=== PATIENT | male | born 1985 | race Caucasian/White ===

== ENCOUNTER 2017-05-20 14:22 | Emergency (ER) | payer OTHER ==
[2017-05-20 14:40] VITALS: O2SAT 100
--- NOTE | 2017-05-20 14:49 | PD ---
HPI Chief Complaint: head injury Time Seen by Provider: 14:32 Travel History International Travel<30 days: No Contact w/Intl Traveler<30days: No History of Present Illness HPI Some possibly 32-year-old man who presents to the emergency department after being found out of the bottom of the ladder, presumed of falling, with altered mental status vomiting and appearance. EMS reports that he appeared clammy, multiple vomiting. Complains of headache, and scalp tenderness. GCS was 12 in route. Called as a level I trauma alert. Is type I diabetic, blood sugar was in the 60s on scene. Given D10. Continued episodes of vomiting with repetitive questioning. PFSH Past Medical History Narrative Medical Type 1 diabetes Graves' disease Allergies-Medications (Allergen,Severity, Reaction): Coded Allergies: No Known Drug Allergies (Verified Allergy, Unknown, 05/20/17) Review of Systems Except as stated in HPI: all other systems reviewed are Neg Physical Exam Narrative GENERAL: Well-appearing young adult male, cervical collar in place, sitting out. SKIN: Pale and clammy. HEAD: Normocephalic. Abrasion with tenderness in the posterior occiput in the midline. EYES: Pupils equal and round. No scleral icterus. No injection or drainage. ENT: No nasal bleeding or discharge. Mucous membranes pink and moist. NECK: No significant midline tenderness. No step also deformities. CARDIOVASCULAR: Regular rate and rhythm. No murmur appreciated. RESPIRATORY: No accessory muscle use. Clear to auscultation. Breath sounds equal bilaterally. GASTROINTESTINAL: Abdomen soft, non-tender, nondistended. Hepatic and splenic margins not palpable. MUSCULOSKELETAL: No obvious deformities. Back exam is overall unremarkable. No ecchymosis bruising swelling supple also deformities. NEUROLOGICAL: Awake and alert. Slight confusion. No obvious cranial nerve deficits. Motor grossly within normal limits. Normal speech. Data Data Last Documented VS Vital Signs Date Time Temp Pulse Resp B/P (MAP) Pulse Ox O2 Delivery O2 Flow Rate FiO2 05/20/17 15:00 72 13 126/79 (95) 100 Room Air 05/20/17 14:40 21 Orders Orders Ed Poc Ultrasound (05/20/17 ) I-Stat Profile (05/20/17 14:42) I-Stat Creatinine (05/20/17 14:42) Complete Blood Count With Diff (05/20/17 14:42) Prothrombin Time / Inr (Pt) (05/20/17 14:42) Act Partial Throm Time (Ptt) (05/20/17 14:42) Type And Screen (05/20/17 14:42) Chest, Single Ap (05/20/17 14:42) Ct Brain W/O Iv Contrast(Rout) (05/20/17 14:42) Ct Cerv Spine W/O Contrast (05/20/17 14:42) Iv Access Insert/Monitor (05/20/17 14:42) Ecg Monitoring (05/20/17 14:42) Oximetry (05/20/17 14:42) Oxygen Administration (05/20/17 14:42) Acetaminophen (Tylenol) (05/20/17 15:30) Labs Laboratory Tests Test 05/20/17 14:34 White Blood Count 14.2 TH/MM3 Red Blood Count 4.45 MIL/MM3 Hemoglobin 13.4 GM/DL Bedside Hemoglobin 13.3 G/DL Hematocrit 40.2 % Bedside Hematocrit 39.0 % Mean Corpuscular Volume 90.4 FL Mean Corpuscular Hemoglobin 30.2 PG Mean Corpuscular Hemoglobin Concent 33.4 % Red Cell Distribution Width 12.8 % Platelet Count 211 TH/MM3 Mean Platelet Volume 8.9 FL Neutrophils (%) (Auto) 80.7 % Lymphocytes (%) (Auto) 11.9 % Monocytes (%) (Auto) 6.6 % Eosinophils (%) (Auto) 0.4 % Basophils (%) (Auto) 0.4 % Neutrophils # (Auto) 11.5 TH/MM3 Lymphocytes # (Auto) 1.7 TH/MM3 Monocytes # (Auto) 0.9 TH/MM3 Eosinophils # (Auto) 0.1 TH/MM3 Basophils # (Auto) 0.1 TH/MM3 CBC Comment DIFF FINAL Differential Comment Prothrombin Time 11.4 SEC Prothromb Time International Ratio 1.0 RATIO Activated Partial Thromboplast Time 21.2 SEC Bedside Sodium 144 MMOL/L Bedside Potassium 3.5 MMOL/L Bedside Chloride 102 MMOL/L Bedside Blood Urea Nitrogen 12 MG/DL Bedside Creatinine 0.9 MG/DL Bedside Glucose 143 MG/DL [facility] Medical Screen Exam Complete: Yes Emergency Medical Condition: Yes Interpretation(s) LABS: CC remarkable for white count of 14.2 thousand Point of care chemistries are unremarkable Coags are unremarkable Head CT negative C-spine CT negative Chest x-ray unremarkable Differential Diagnosis Head injury, concussion, hypoglycemia, other Narrative Course Medical decision making Young adult man, presumed fall from height, to 16 feet, contusion on the posterior occiput with vomiting repetitive questioning suspicious for ICH. Blood sugar was low normal. We'll check labs, CT, reassess. Trauma Alert - Level One Trauma Alert Level One: Full trauma team activate Time Surgeon Summoned: 13:54 Diagnosis Diagnosis: Primary Impression: Closed head injury Departure Forms: Tests/Procedures, Work Release Enter return to work date: May 28, 2017 Additional Instructions: Use acetaminophen as needed for headache. Follow-up with her primary doctor for not completely well in 7 days. Return the emergency department for any worsening headache, vomiting, or any other new or worsening symptoms. Med/Other Pt SpecificInfo: No Change to Meds Disposition: 01 DISCHARGE HOME Condition: Stable Errol Francis MD May 20, 2017 14:49
--- NOTE | 2017-05-20 14:54 | RADRPT ---
EXAM DATE/TIME: 05/20/2017 14:39 [facility] COMPARISON: No previous studies available for comparison. INDICATIONS : Trauma Alert, fell MEDICAL HISTORY : None. SURGICAL HISTORY : None. ENCOUNTER: Initial ACUITY: 1 day PAIN SCORE: Non-responsive. LOCATION: chest FINDINGS: Single AP view of the chest. The lungs are clear. Cardiomediastinal silhouette within normal limits. No evidence of pleural effusion or pneumothorax. CONCLUSION: No acute cardiopulmonary disease identified. Cliff Arias MD on May 20, 2017 at 14:52 Board Certified Radiologist. This report was verified electronically.
[2017-05-20 14:55] LABS: AUTOMATED NEUTROPHIL # 11.5 TH/MM3 (1.8-7.7); BASOPHIL # 0.1 TH/MM3 (0-0.2); BASOPHIL % 0.4 % (0.0-2.0); EOSINOPHIL # 0.1 TH/MM3 (0-0.4); EOSINOPHIL % 0.4 % (0.0-4.0); HEMATOCRIT 40.2 % (39.0-51.0); HEMO FLAGS DIFF FINAL; LYMPH % 11.9 % (9.0-44.0); LYMPHOCYTE # 1.7 TH/MM3 (1.0-4.8); MEAN CELL VOLUME 90.4 FL (80.0-100.0); MEAN CORPUSCULAR HEMOGLOBIN 30.2 PG (27.0-34.0); MEAN CORPUSCULAR HGB CONC 33.4 % (32.0-36.0); MONO % 6.6 % (0.0-8.0); NEUT % 80.7 % (16.0-70.0); PLATELET COUNT 211 TH/MM3 (150-450); RED BLOOD COUNT 4.45 MIL/MM3 (4.50-5.90); RED CELL DISTRIBUTION WIDTH 12.8 % (11.6-17.2); WHITE BLOOD COUNT 14.2 TH/MM3 (4.0-11.0)
--- NOTE | 2017-05-20 14:56 | RADRPT ---
EXAM DATE/TIME: 05/20/2017 14:44 [facility] COMPARISON: No previous studies available for comparison. INDICATIONS : Fell from attic.Trauma alert. RADIATION DOSE: 49.12 CTDIvol (mGy) ; Tabletop CT Head MEDICAL HISTORY : unobtainable SURGICAL HISTORY : unobtainable ENCOUNTER: Initial ACUITY: 1 day PAIN SCALE: 10/10 LOCATION: neck TECHNIQUE: Multiple contiguous axial images were obtained of the head. Using automated exposure control and adj ustment of the mA and/or kV according to patient size, radiation dose was kept as low as reasonably a chievable to obtain optimal diagnostic quality images. DICOM format image data is available electro nically for review and comparison. FINDINGS: CEREBRUM: The ventricles are normal for age. No evidence of midline shift, mass lesion, hemorrhage or acute in farction. No extra-axial fluid collections are seen. POSTERIOR FOSSA: The cerebellum and brainstem are intact. The 4th ventricle is midline. The cerebellopontine angle i s unremarkable. EXTRACRANIAL: Mild partial opacification of the ethmoid sinuses. SKULL: The calvaria is intact. No evidence of skull fracture. CONCLUSION: No acute intracranial findings. Cliff Arias MD on May 20, 2017 at 14:53 Board Certified Radiologist. This report was verified electronically.
[2017-05-20 15:00] VITALS: BP 126/79; PULSE 72; RESP 13; O2SAT 100
--- NOTE | 2017-05-20 15:00 | RADRPT ---
EXAM DATE/TIME: 05/20/2017 14:44 [facility] COMPARISON: No previous studies available for comparison. INDICATIONS : Fell from attic, trauma alert. RADIATION DOSE: 21.58 CTDIvol (mGy) MEDICAL HISTORY : unobtainable SURGICAL HISTORY : unobtainable ENCOUNTER: Initial ACUITY: 1 day PAIN SCALE: 10/10 LOCATION: cranial TECHNIQUE: Volumetric scanning of the cervical spine was performed. Multiplanar reconstructions in the sagittal, coronal and oblique axial planes were performed. Using automated exposure control and adjustment o f the mA and/or kV according to patient size, radiation dose was kept as low as reasonably achievable to obtain optimal diagnostic quality images. DICOM format image data is available electronically f or review and comparison. FINDINGS: VERTEBRAE: Normal vertebral body height. ALIGNMENT: No evidence of subluxation. C2-C3: The bony spinal canal is normal in size. No evidence of disc bulge or herniation. The neural forami na are bilaterally patent. C3-C4: The bony spinal canal is normal in size. No evidence of disc bulge or herniation. The neural forami na are bilaterally patent. C4-C5: The bony spinal canal is normal in size. No evidence of disc bulge or herniation. The neural forami na are bilaterally patent. C5-C6: The bony spinal canal is normal in size. No evidence of disc bulge or herniation. The neural forami na are bilaterally patent. C6-C7: The bony spinal canal is normal in size. No evidence of disc bulge or herniation. The neural forami na are bilaterally patent. C7-T1: The bony spinal canal is normal in size. No evidence of disc bulge or herniation. The neural forami na are bilaterally patent. CONCLUSION: No evidence of fracture. Cliff Arias MD on May 20, 2017 at 14:57 Board Certified Radiologist. This report was verified electronically.
--- NOTE | 2017-05-20 15:02 | HHI.CCPN ---
Subjective Brief History Young male fell out of attic while installing some electrical equipment Landed on the floor and was found allegedly curled up vomiting On the scene David Coma Scale was 12 and patient was transferred to our institution as a priority 1 trauma alert in face of decreased level of consciousness on the scene On arrival patient is awake alert and oriented complaining about headache. Downgraded to regular ER evaluation Physical exam Normocephalic some swelling of the right parieto-occipital area of the head but no bleeding depression deformity Pupils equal reactive external, muscles intact Neck is supple lateral carotid pulses no bruits Chest clear bilateral breath sounds Abdomen soft pelvis stable Extremities within normal limits CT of the brain and neck does not reveal any acute abnormality C collar can be removed Diagnosis Head contusion/brain concussion no retrograde amnesia In face of negative findings patient can be discharged after few hours of observation No reason for trauma admission at this time Thanks J Objective Vital Signs Date Time Temp Pulse Resp B/P (MAP) Pulse Ox O2 Delivery O2 Flow Rate FiO2 05/20/17 14:40 100 21 Result Diagram: 05/20/17 1434 Carmen Delgado MD May 20, 2017 15:02
[2017-05-20 15:11] LABS: APTT (PATIENT) 21.2 SEC (24.3-30.1); PROTHROMBIN TIME - PATIENT 11.4 SEC (9.8-11.6)
[2017-05-20 15:19] LABS: I-STAT POTASSIUM 3.5 MMOL/L (3.5-4.9)
[2017-05-20] MEDS ORDERED: ACETAMINOPHEN 325 MG TAB PO ONE (15:30)
[2017-05-20] MEDS ORDERED: ZOFR4TAB3 SL (16:05)
[2017-05-20] MEDS ORDERED: ONDANSETRON ODT 4 MG TAB PO ONE (16:15)
== END 2017-05-20 16:20 | disposition home or self-care (01) ==
LOC: EDBD 14:22 → NEPI 14:22 → NEPE 16:20
DX: S09.90XA Unspecified injury of head, initial encounter (principal); S00.03XA Contusion of scalp, initial encounter; R11.10 Vomiting, unspecified; E10.9 Type 1 diabetes mellitus without complications; E05.00 Thyrotoxicosis with diffuse goiter without thyrotoxic crisis or storm; W11.XXXA Fall on and from ladder, initial encounter
CPT/HCPCS: 70450; 71010; 72125; 82435; 82565; 82947; 84132; 84295; 84520; 85025; 85610; 85730; 86850; 86900; 86901; 99285